=== PATIENT | male | born 1945 | race Caucasian/White ===

== ENCOUNTER 2017-02-27 15:56 | Emergency (ER) | payer OTHER, BC ==
[~2017-02-27] VITALS: Ht 177.8 cm; Wt 93.3 kg
[~2017-02-27 15:56] MED LIST: SODIUM CHLORIDE 0.9% 1000ML 1,000 ML IV SCH
[2017-02-27] MEDS ORDERED: SET 2260-0500 IV STA (16:04)
[2017-02-27] MEDS ORDERED: ALTEPLASE, RECOMBINANT INJ 8 MG in SYRINGE 0 ML IV STA (16:04)
[2017-02-27] MEDS ORDERED: ALTEPLASE, RECOMBINANT INJ 72 MG in EMPTY BAG 0 ML IV STA (16:04)
[2017-02-27 16:09] VITALS: TEMP 37; Ht 177.8 cm; Wt 93.3 kg
[2017-02-27 16:13] LABS: BASO % 0.1 %; BASO ABS # 0.01 K/uL (0-0.2); COMPLETE YES; EOS % 1.2 %; HEMATOCRIT 44.6 % (42-52); IG% 0.3 %; LYMPH ABS # 2.27 K/uL (1.2-3.4); MEAN CELL VOLUME 88.5 fL (80-100); MEAN CORPUSCULAR HEMOGLOBIN 31.3 pg (25-34); MEAN CORPUSCULAR HGB CONC 35.4 g/dl (32-36); MEAN PLATELET VOLUME 9.7 fL (7.4-10.4); NEUT % 63.4 %; PLATELET COUNT 218 K/uL (130-400); RED BLOOD COUNT 5.04 M/uL (4.7-6.1); WHITE BLOOD COUNT 9.46 K/uL (4.8-10.8)
[2017-02-27] MEDS ORDERED: LABETALOL HCL IV 5 MG/ML 20ML IV ONE (16:15)
--- NOTE | 2017-02-27 16:15 | DIAGNOSTIC IMAGING REPORT ---
CT OF THE HEAD WITHOUT CONTRAST CLINICAL HISTORY: Stroke. COMPARISON STUDY: No previous studies for comparison. CT DOSE: 749.40 mGy.cm TECHNIQUE: Helical axial images of the head were obtained without IV contrast. Automated exposure control was utilized for the study. A dose lowering technique was utilized adhering to the principles of ALARA. FINDINGS: No acute intracranial hemorrhage, midline shift or mass effect is present. Ventricular system is unremarkable for age. Basilar cisterns are patent. There are no extra-axial collections. There may be subtle increased attenuation of the sylvian branch of the right middle cerebral artery. 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 There is mild mucosal thickening of the sinuses. Mastoid air cells are clear. There are no significant calvarial abnormalities. IMPRESSION: 1. No acute intracranial hemorrhage or mass effect. 2. Equivocal findings for an acute right MCA distribution infarct. Discussed with Dr. Cummins at time of dictation. Electronically signed by: Sg Ruvalcaba M.D. 02/27/2017 4:14 PM Dictated Date/Time: 02/27/2017 4:04 PM
[2017-02-27 16:22] VITALS: O2SAT 97
[2017-02-27] MEDS ORDERED: TRAM-10 PO (16:24)
[2017-02-27] MEDS ORDERED: LISI-725 PO (16:24)
[2017-02-27] MEDS ORDERED: [UNRECOGNIZED DRUG - REMARK] PO (16:24)
[2017-02-27] MEDS ORDERED: METO25TA3 PO (16:24)
[2017-02-27 16:29] LABS: BLOOD UREA NITROGEN 27 mg/dl (7-18); CALCIUM 9.1 mg/dl (8.5-10.1); CARBON DIOXIDE 23 mmol/L (21-32); CHLORIDE 108 mmol/L (98-107); GLUCOSE 104 mg/dl (70-99); POTASSIUM 3.9 mmol/L (3.5-5.1); SODIUM 139 mmol/L (136-145)
[2017-02-27] MEDS ORDERED: NiCARDipine IV 25 MG in SODIUM CHLORIDE 0.9% 250ML 240 ML IV STA (16:29)
[2017-02-27] MEDS ORDERED: NiCARDipine IV 25 MG in SODIUM CHLORIDE 0.9% 250ML 240 ML IV PRN ×2 (16:30→16:45)
[2017-02-27 16:32] LABS: PARTIAL THROMBOPLASTIN RATIO 0.9; PROTHROMBIN TIME (PATIENT) 10.9 SECONDS (9.0-12.0)
[2017-02-27 16:34] LABS: CKMB/CK RATIO 1.8 (0-3.0)
[2017-02-27 18:02] VITALS: BP 163/87; PULSE 74; O2SAT 98
--- NOTE | 2017-02-27 19:01 | EMERGENCY ROOM VISIT NOTE ---
History Report prepared by Julian: Kassandra Patel Under the Supervision of: Dr. Bimal Cummins D.O. 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 The patient was at a store with his . They were walking around and then at about 3:20pm the patient developed some numbness in his left arm. He started to have left-sided weakness and was unable to speak to his . The ambulance was called and the patient was brought to the ED for further evaluation. He is still experiencing left-sided weakness. Pt denies headache, change in vision, fevers, chest pain, shortness of breath, nausea, vomiting, diarrhea, pain with urination, hematochezia, and melena. He denies any previous brain bleeds or brain surgeries. He has never had a stroke before. The patient recently stopped taking his aspirin and metoprolol and is trying other homeopathic remedies. Source of History: patient, EMS Onset: 3:20pm Position: other (global) Quality: other (stroke-like) Timing: constant Associated Symptoms: + weakness, + numbness, No fevers, No headache, No chest pain, No SOB, No nausea, No vomiting, No melena, No hematochezia, No urinary symptoms Review of Systems See HPI for pertinent positives & negatives. A total of 10 systems reviewed and were otherwise negative. Past Medical & Surgical Medical Problems: (1) History of stomach ulcers (2) Hx of venous thrombosis and embolism (3) Hypertension Family History No pertinent history stated. Social History Marital Status: Housing Status: lives with significant other Occupation Status: retired Current/Historical Medications Scheduled Lisinopril (Zestril), Unknown Dose PO DAILY Metoprolol Succinate (Toprol Xl), Unknown Dose PO DAILY [Natural "Thinner"], Unknown Dose PO DAILY Scheduled PRN Tramadol (Ultram), Unknown Dose PO Q8H PRN for Pain Allergies Coded Allergies: Benzodiazepines (Verified Allergy, Severe, "OPPOSITE EFFECTS", 02/27/17) Flurazepam (Verified Allergy, Severe, "OPPOSITE EFFECTS", 02/27/17) Warfarin (Verified Allergy, Severe, GI SYMPTOMS, 02/27/17) Codeine (Verified Allergy, Unknown, UNKNOWN, 02/27/17) Penicillins (Verified Allergy, Unknown, UNKNOWN, 02/27/17) Physical Exam Vital Signs Date Time Temp Pulse Resp B/P (MAP) Pulse Ox O2 Delivery O2 Flow Rate FiO2 02/27/17 18:02 74 18 163/87 98 Room Air 02/27/17 17:47 76 18 143/73 98 Room Air 02/27/17 17:32 71 18 149/82 98 Room Air 02/27/17 17:17 77 18 145/82 97 Room Air 02/27/17 17:02 75 20 163/87 98 Room Air 02/27/17 16:54 75 18 170/94 98 Room Air 02/27/17 16:29 65 18 195/107 Room Air 02/27/17 16:22 97 Room Air 02/27/17 16:09 72 02/27/17 16:09 37.0 74 20 213/85 98 Room Air 02/27/17 15:59 37.0 72 20 196/101 98 Room Air Physical Exam GENERAL: alert, lying on the CT scanner, disheveled appearing EYE EXAM: normal conjunctiva, PERRL and EOM's grossly intact OROPHARYNX: no exudate, no erythema, lips, buccal mucosa, and tongue normal and mucous membranes are moist NECK: supple, no nuchal rigidity, no adenopathy, non-tender LUNGS: Clear to auscultation. Normal chest wall mechanics HEART: no murmurs, S1 normal and S2 normal ABDOMEN: abdomen soft, non-tender, normo-active bowel sounds, no masses, no rebound or guarding. BACK: Back is symmetrical on inspection and there is no deformity, no midline tenderness, no CVA tenderness. SKIN: no rashes and no bruising UPPER EXTREMITIES: upper extremities are grossly normal. LOWER EXTREMITIES: No pitting edema. NEURO EXAM: Alert with slurred speech, tongue slightly deviated to the right, finger to nose intact. Gross sensation intact. Grasp and flexion/extension of the left upper extremity is weak. He is able to lift his left leg against gravity but unable to hold it up. Positive drift. Medical Decision & Procedures ER Provider Diagnostic Interpretation: Radiology results as stated below per my review and the radiologist's interpretation: CT OF THE HEAD WITHOUT CONTRAST CLINICAL HISTORY: Stroke. COMPARISON STUDY: No previous studies for comparison. CT DOSE: 749.40 mGy.cm TECHNIQUE: Helical axial images of the head were obtained without IV contrast. Automated exposure control was utilized for the study. A dose lowering technique was utilized adhering to the principles of ALARA. FINDINGS: No acute intracranial hemorrhage, midline shift or mass effect is present. Ventricular system is unremarkable for age. Basilar cisterns are patent. There are no extra-axial collections. There may be subtle increased attenuation of the sylvian branch of the right middle cerebral artery. 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 There is mild mucosal thickening of the sinuses. Mastoid air cells are clear. There are no significant calvarial abnormalities. IMPRESSION: 1. No acute intracranial hemorrhage or mass effect. 2. Equivocal findings for an acute right MCA distribution infarct. Discussed with Dr. Cummins at time of dictation. Electronically signed by: Sg Ruvalcaba M.D. 02/27/2017 4:14 PM Dictated Date/Time: 02/27/2017 4:04 PM Laboratory Results 02/27/17 15:54 Red Blood Count 5.04, Mean Corpuscular Volume 88.5, Mean Corpuscular Hemoglobin 31.3, Mean Corpuscular Hemoglobin Concent 35.4, Mean Platelet Volume 9.7, Neutrophils (%) (Auto) 63.4, Lymphocytes (%) (Auto) 24.0, Monocytes (%) (Auto) 11.0, Eosinophils (%) (Auto) 1.2, Basophils (%) (Auto) 0.1, Neutrophils # (Auto ) 6.00, Lymphocytes # (Auto) 2.27, Monocytes # (Auto) 1.04, Eosinophils # (Auto ) 0.11, Basophils # (Auto) 0.01 02/27/17 15:54 Test 02/27/17 15:54 02/27/17 16:11 White Blood Count 9.46 K/uL (4.8-10.8) Red Blood Count 5.04 M/uL (4.7-6.1) Hemoglobin 15.8 g/dL (14.0-18.0) Hematocrit 44.6 % (42-52) Mean Corpuscular Volume 88.5 fL (80-100) Mean Corpuscular Hemoglobin 31.3 pg (25-34) Mean Corpuscular Hemoglobin Concent 35.4 g/dl (32-36) Platelet Count 218 K/uL (130-400) Mean Platelet Volume 9.7 fL (7.4-10.4) Neutrophils (%) (Auto) 63.4 % Lymphocytes (%) (Auto) 24.0 % Monocytes (%) (Auto) 11.0 % Eosinophils (%) (Auto) 1.2 % Basophils (%) (Auto) 0.1 % Neutrophils # (Auto) 6.00 K/uL (1.4-6.5) Lymphocytes # (Auto) 2.27 K/uL (1.2-3.4) Monocytes # (Auto) 1.04 K/uL (0.11-0.59) Eosinophils # (Auto) 0.11 K/uL (0-0.5) Basophils # (Auto) 0.01 K/uL (0-0.2) RDW Standard Deviation 40.1 fL (36.4-46.3) RDW Coefficient of Variation 12.5 % (11.5-14.5) Immature Granulocyte % (Auto) 0.3 % Immature Granulocyte # (Auto) 0.03 K/uL (0.00-0.02) Prothrombin Time 10.9 SECONDS (9.0-12.0) Prothromb Time International Ratio 1.0 (0.9-1.1) Activated Partial Thromboplast Time 24.3 SECONDS (21.0-31.0) Partial Thromboplastin Ratio 0.9 Anion Gap 8.0 mmol/L (3-11) Est Creatinine Clear Calc Drug Dose 54.7 ml/min Estimated GFR () 57.8 Estimated GFR (Non- 49.8 BUN/Creatinine Ratio 19.0 (10-20) Calcium Level 9.1 mg/dl (8.5-10.1) Total Creatine Kinase 122 U/L (39-308) Creatine Kinase MB 2.2 ng/ml (0.5-3.6) Creatine Kinase MB Ratio 1.8 (0-3.0) Troponin I < 0.015 ng/ml (0-0.045) Bedside Glucose 96 mg/dl (70-99) Laboratory results per my review. Medications Administered Medications (Trade) Dose Ordered Sig/Delmi Route Start Time Stop Time Status Last Admin Dose Admin Alteplase, Recombinant 72 mg/ Empty Bag 72 ml @ 72 mls/hr NOW STAT IV 02/27/17 16:04 02/27/17 17:03 DC 02/27/17 16:52 72 MLS/HR Alteplase, Recombinant 8 mg/ Syringe 8 ml @ 8 mls/min NOW STAT IV 02/27/17 16:04 02/27/17 16:07 DC 02/27/17 16:46 8 MLS/MIN Labetalol HCl (Normodyne IV) 10 mg NOW ONCE IV 02/27/17 16:15 02/27/17 16:16 DC 02/27/17 16:26 10 MG Nicardipine HCl 25 mg/Sodium Chloride 250 ml @ 0 mls/hr Q0M PRN IV 02/27/17 16:30 02/27/17 16:38 DC 02/27/17 16:27 5 MLS/HR ECG Indication: weakness Rate (beats per minute): 77 Rhythm: normal sinus Findings: left axis deviation, other (intraventricular conduction delay) ED Course ED COURSE: Vital signs were reviewed and showed hypertension. The patients medical record was reviewed The above diagnostic studies were performed and reviewed. ED treatments and interventions as stated above. 1551: Upon the patient's arrival in the ED, he was taken directly to CT scan. I accompanied him and performed my initial physical examination there. 1553: NSS 1000 ml @ 50 mls/hr IV 1603: The patient was taken to room B1. Further history was obtained and a further physical examination was performed. 1604: Alteplase Recombinant 8 mg/IV, Alteplase Recombinant 72 mg IV 1608: At this time I discussed the patient's case with Dr. Triplett of neurology at [facility]. 1613: Dr. Triplett is evaluating the patient via Tele-stroke. 1614: The patient's repeat blood pressure is 203. 1615: Labetalol HCl 10 mg IV 1619: The patient's blood pressure is still high. He is getting Labetalol now. 1629: Nicardipine HCl 250 ml @ 5 mls/hr IV 1639: I updated the patient and his on his results and treatment plan. I talked to them about the risks and benefits associated with TPA. They are discussing their options now. 1644: The patient and his deny any recent trauma, brain bleeds, blood in stool. Both him and his accepted the risk of intracranial bleed at a rate of about 6%. The patient is getting TPA. 1645: Nicardipine HCl 250 ml IV 1646:The patient received TPA and his blood pressure is 170. 1648: I discussed the patient's case with Dr. Triplett again at this time. He accepted the patient for transfer to the ED at [facility]. 1652: I reassessed the patient at this time. I discussed the results and treatment plan with the patient and his . I answered all pertaining questions that they had. They expressed understanding and verbalized agreement. 1715: [facility] is unable to fly the patient due to inclement weather. They are going to transfer the patient by ground. I updated the patient and his family. His symptoms have improved and he can lift his left leg and keep it elevated. 1739: The patient's speech is cleared up. 1749: Upon reevaluation, the patient is much improved. The TPA has finished and EMS has arrived to transfer the patient to [facility]. The patient remained stable while under my care. Medical Decision Differential Diagnosis includes but is not limited to ischemic Stroke, hemorrhagic stroke, bells palsy, mass, neoplasm, migraine headache, seizure, subarachnoid hemorrhage, TIA, and transient global amnesia. I received medical command on this patient. Stroke alert was called has had active left-sided weakness associated with slurred speech. Upon arrival he was taken directly to CAT scan. CT showed a questionable right MCA sign. Discussed case with [facility]. Patient was evaluated by them independently. I gave 1 dose of labetalol as systolic blood pressures were in the 200s. Following this he was placed on a Cardene drip so TPA could be administered. This was titrated up to a systolic blood pressure less than 180. Risk and benefits were explained at length in regards to TPA. I discussed with the pharmacist initially upon arrival in the TPA was mixed. Bolus and drip was given in the ER following full eval by [facility] and myself. Both Pt and agreed to the risks. Patient's symptoms improved significant. He was monitored closely. Multiple discussions with [facility]. Eventually contacted [facility] as [facility] was not flying. Patient will be transferred by ground. TPA finish prior to transport. Cardene drip will continue. Patient's speech cleared up significantly and left lower extremity weakness almost nearly resolved. Patient was transferred via [facility] to [facility] for further evaluation via air as the weather clear. As stated in the course patient had no bleeding risk factors with the exception of injection done 3 weeks ago into the back of the neck. Medication Reconcilliation Current Medication List: was personally reviewed by me Blood Pressure Screening Patient's blood pressure: Elevated blood pressure Blood pressure disposition: Referred to PCP Consults Time Called: 1606 Consulting Physician: Dr. Triplett Returned Call: 1608 At this time I discussed the patient's case with Dr. Triplett of neurology at [facility]. Additional Consults: Time Called: 1646 Consulted Physician: Dr. Triplett Returned Call: 1648 Additional Comments: I discussed the patient's case with Dr. Triplett again at this time. He accepted the patient for transfer to the ED at [facility]. Impression Primary Impression: Stroke Additional Impression: Hypertension Critical Care I have personally spent 125 minutes of critical care time in the direct management of this patient. This includes bedside care, interpretation of diagnostic studies, and testing, discussion with consultants, patient, and family members, and other required patient management activities. This 125 minutes is in excess of all separately billable procedures. Scribe Attestation The scribe's documentation has been prepared under my direction and personally reviewed by me in its entirety. I confirm that the note above accurately reflects all work, treatment, procedures, and medical decision making performed by me. Departure Information Dispostion Transfer Acute Care Facility Referrals No Doctor, Assigned (PCP) Patient Instructions My [facility] Stroke History Time Last Known Well 1520 Stroke t-PA Criteria Reviewed Meets criteria for t-PA Reason t-PA Not Given Treatment provided - N/A Problem Qualifiers Primary Impression: Stroke CVA mechanism: occlusion Precerebral and cerebral artery: middle cerebral artery Laterality of affected vessel: right Qualified Codes: I63.511 - Cerebral infarction due to unspecified occlusion or stenosis of right middle cerebral artery Additional Impression: Hypertension Hypertension type: unspecified Qualified Codes: I10 - Essential (primary) hypertension
== END 2017-02-27 18:08 | disposition short-term general hospital (02) ==
LOC: C.EDB 15:56
DX: I63.511 Cerebral infarction due to unspecified occlusion or stenosis of right middle cerebral artery (principal); I10 Essential (primary) hypertension; Z86.718 Personal history of other venous thrombosis and embolism; Z87.19 Personal history of other diseases of the digestive system

== ENCOUNTER 2017-03-05 17:47 | Emergency (ER) | payer OTHER, BC ==
[~2017-03-05] VITALS: Ht 177.8 cm; Wt 93.4 kg
[~2017-03-05 17:47] MED LIST changes: +LISI-725 PO; +METO25TA3 PO; -SODIUM CHLORIDE 0.9% 1000ML 1,000 ML IV SCH; +TRAM-10 PO; +[UNRECOGNIZED DRUG - REMARK] PO
[2017-03-05 17:55] VITALS: Ht 177.8 cm; Wt 93.4 kg
[2017-03-05] MEDS ORDERED: ONDANSETRON INJ 2 MG/ML 2 ML VIAL IV STA (17:57)
[2017-03-05] MEDS ORDERED: TAMS0.4C38 PO (18:05)
[2017-03-05] MEDS ORDERED: ASPI81CH2 PO (18:05)
[2017-03-05] MEDS ORDERED: ENOX40IN SQ (18:05)
[2017-03-05] MEDS ORDERED: CLOP1TAB15 PO (18:05)
[2017-03-05] MEDS: FENTANYL CITRATE INJ 50 MCG/1 ML 2 ML VIAL IV PRN ×3 (18:09→20:00)
[2017-03-05] MEDS ORDERED: METO25TA56 PO (18:11)
[2017-03-05] MEDS ORDERED: FAMO10TA10 PO (18:11)
[2017-03-05 18:12] LABS: BASO % 0.1 %; BASO ABS # 0.01 K/uL (0-0.2); COMPLETE YES; EOS % 0.4 %; IG% 0.3 %; LYMPH % 12.6 %; LYMPH ABS # 1.41 K/uL (1.2-3.4); MEAN CELL VOLUME 91.7 fL (80-100); MEAN CORPUSCULAR HEMOGLOBIN 31.8 pg (25-34); MEAN CORPUSCULAR HGB CONC 34.7 g/dl (32-36); MEAN PLATELET VOLUME 9.6 fL (7.4-10.4); NEUT % 77.6 %; PLATELET COUNT 229 K/uL (130-400); RED BLOOD COUNT 4.69 M/uL (4.7-6.1); WHITE BLOOD COUNT 11.16 K/uL (4.8-10.8)
--- NOTE | 2017-03-05 18:13 | DIAGNOSTIC IMAGING REPORT ---
CHEST ONE VIEW PORTABLE CLINICAL HISTORY: CHEST PAIN dyspnea COMPARISON STUDY: No previous studies for comparison. FINDINGS: Prior median sternotomy. Diaphragms smooth. Lungs are considered clear. IMPRESSION: Negative chest. The above report was generated using voice recognition software. It may contain grammatical, syntax or spelling errors. Electronically signed by: Alexys Carreno M.D. 03/05/2017 6:12 PM Dictated Date/Time: 03/05/2017 6:12 PM
[2017-03-05 18:24] LABS: PARTIAL THROMBOPLASTIN RATIO 1.1; PROTHROMBIN TIME (PATIENT) 11.1 SECONDS (9.0-12.0)
[2017-03-05 18:33] LABS: ALT/SGPT 30 U/L (12-78); BLOOD UREA NITROGEN 16 mg/dl (7-18); BUN/CREATININE RATIO 12.9 (10-20); CALCIUM 9.5 mg/dl (8.5-10.1); CARBON DIOXIDE 25 mmol/L (21-32); CHLORIDE 107 mmol/L (98-107); GLUCOSE 136 mg/dl (70-99); POTASSIUM 4.2 mmol/L (3.5-5.1); SODIUM 140 mmol/L (136-145)
[2017-03-05 18:38] LABS: ALKALINE PHOSPHATASE 57 U/L (45-117); AST/SGOT 12 U/L (15-37)
--- NOTE | 2017-03-05 18:48 | EMERGENCY ROOM VISIT NOTE ---
History Report prepared by Julian: Rosa Ralph Under the Supervision of: Dr. Grey Medrano D.O. First contact with patient: 17:52 Chief Complaint: BLEEDING Stated Complaint: BLEEDING History of Present Illness The patient is a 71 year old male who presents to the Emergency Room with complaints of persistent bleeding from neck starting 10-20 minutes ago. The patient had a stroke recently and was given TPA here and sent to [place]. He had a carotid endarterectomy there yesterday. He was discharged today. He did have some oozing today when he was discharged, but was told that it was not concerning. He started to have increased bleeding prompting him to present to the ED. He does not think the swelling in his neck has worsened. He was given Lovenox last night and Plavix today. He is having increased pain with swallowing. He denies any trouble breathing, weakness in the arms or legs, or any other stroke symptoms. Source of History: patient, family Onset: 10-20 minutes ago Position: neck Quality: other (bleeding) Timing: other (persistent) Associated Symptoms: No SOB, No weakness Note: Pt reports increased pain with swallowing. Pt denies worsening of swelling, stroke symptoms. Review of Systems See HPI for pertinent positives & negatives. A total of 10 systems reviewed and were otherwise negative. Past Medical & Surgical Medical Problems: (1) History of stomach ulcers (2) Hx of venous thrombosis and embolism (3) Hypertension (4) Stroke Family History No pertinent family history stated. Social History Smoking Status: Never Smoker Marital Status: Housing Status: lives with significant other Occupation Status: retired Current/Historical Medications Scheduled Aspirin (Aspirin), 81 MG PO QAM Clopidogrel (Plavix), 75 MG PO QAM Enoxaparin (Lovenox), 40 MG SQ Q12H Famotidine (Pepcid Ac), 15 MG PO QAM Metoprolol Tartrate (Lopressor) (Lopressor), 12.5 MG PO BID Tamsulosin Hcl (Flomax), 0.8 MG PO QAM Allergies Coded Allergies: Benzodiazepines (Verified Allergy, Severe, "OPPOSITE EFFECTS", 03/05/17) Flurazepam (Verified Allergy, Severe, "OPPOSITE EFFECTS", 03/05/17) Warfarin (Verified Allergy, Severe, GI SYMPTOMS, 03/05/17) Codeine (Verified Allergy, Unknown, UNKNOWN, 03/05/17) Penicillins (Verified Allergy, Unknown, UNKNOWN, 03/05/17) Statins (Unverified Allergy, Unknown, MUSCLE PAIN, 03/05/17) Physical Exam Vital Signs Date Time Temp Pulse Resp B/P (MAP) Pulse Ox O2 Delivery O2 Flow Rate FiO2 03/05/17 20:37 114 15 95 Nasal Cannula 2.0 03/05/17 20:31 149/95 03/05/17 20:22 115 20 95 Nasal Cannula 2.0 03/05/17 20:17 119 23 95 03/05/17 20:16 37.0 118 17 125/95 96 Nasal Cannula 2.0 03/05/17 20:12 170/96 03/05/17 20:10 37.0 118 19 170/96 96 2.0 03/05/17 20:06 114 16 96 Nasal Cannula 2.0 03/05/17 20:01 153/93 03/05/17 20:00 37.1 108 21 153/93 95 2.0 03/05/17 19:51 106 18 96 Nasal Cannula 2.0 03/05/17 19:46 155/90 03/05/17 19:43 163/92 03/05/17 19:43 37.1 108 20 163/92 95 03/05/17 19:36 105 21 95 Nasal Cannula 2.0 03/05/17 19:31 146/91 03/05/17 19:22 104 22 96 Nasal Cannula 2.0 03/05/17 19:17 104 95 Nasal Cannula 2.0 03/05/17 19:16 125/110 03/05/17 19:02 106 18 95 Nasal Cannula 2.0 03/05/17 18:57 111 18 95 Nasal Cannula 2.0 03/05/17 18:49 90 Room Air 03/05/17 18:49 95 Nasal Cannula 2.0 03/05/17 18:46 154/94 03/05/17 18:42 104 21 94 03/05/17 18:37 105 21 92 03/05/17 18:31 168/88 03/05/17 18:22 114 20 93 03/05/17 18:16 108 19 170/92 94 Room Air 03/05/17 18:16 170/92 03/05/17 18:09 96 Room Air 03/05/17 18:07 108 19 96 7/28/17 18:02 100 22 96 03/05/17 18:01 193/98 03/05/17 18:00 105 03/05/17 17:59 201/107 03/05/17 17:58 203/107 03/05/17 17:58 96 Room Air 03/05/17 17:55 37.1 108 22 203/107 96 Room Air Physical Exam GENERAL: Patient is awake, alert, and very anxious appearing. EYES: The conjunctivae are clear. The pupils are round and reactive. EARS, NOSE, MOUTH AND THROAT: The nose is without any evidence of any deformity. Mucous membranes are moist tongue is midline NECK: Post operative site noted in the right side of the neck, skin sarkis were in place, mild oozing of blood noted over the surgical site, large post operative hematoma noted, no bruit was appreciated, palpated tenderness noted. RESPIRATORY: Normal respiratory effort is noted there is no evidence of wheezing rhonchi or rales CARDIOVASCULAR: Regular rate and rhythm noted there no murmurs rubs or gallops normal S1 normal S2 GASTROINTESTINAL: The abdomen is soft. Bowel sounds are present in all quadrants. Abdomen is nontender MUSCULOSKELETAL/EXTREMITIES: There is no evidence of gross deformity full range of motion is noted in the hips and shoulders SKIN: There is no obvious evidence of any rash. There are no petechiae, pallor or cyanosis noted. NEUROLOGIC: Patient is awake alert and oriented x3 Medical Decision & Procedures ER Provider Diagnostic Interpretation: X-ray results as stated below per interpretation by me and the radiologist. CHEST ONE VIEW PORTABLE CLINICAL HISTORY: CHEST PAIN dyspnea COMPARISON STUDY: No previous studies for comparison. FINDINGS: Prior median sternotomy. Diaphragms smooth. Lungs are considered clear. IMPRESSION: Negative chest. The above report was generated using voice recognition software. It may contain grammatical, syntax or spelling errors. Electronically signed by: Alexys Carreno M.D. 03/05/2017 6:12 PM Dictated Date/Time: 03/05/2017 6:12 PM Laboratory Results 03/05/17 18:00 Red Blood Count 4.69, Mean Corpuscular Volume 91.7, Mean Corpuscular Hemoglobin 31.8, Mean Corpuscular Hemoglobin Concent 34.7, Mean Platelet Volume 9.6, Neutrophils (%) (Auto) 77.6, Lymphocytes (%) (Auto) 12.6, Monocytes (%) (Auto) 9.0, Eosinophils (%) (Auto) 0.4, Basophils (%) (Auto) 0.1, Neutrophils # (Auto) 8.66, Lymphocytes # (Auto) 1.41, Monocytes # (Auto) 1.00, Eosinophils # (Auto) 0.05, Basophils # (Auto) 0.01 03/05/17 18:00 Test 03/05/17 18:00 White Blood Count 11.16 K/uL (4.8-10.8) Red Blood Count 4.69 M/uL (4.7-6.1) Hemoglobin 14.9 g/dL (14.0-18.0) Hematocrit 43.0 % (42-52) Mean Corpuscular Volume 91.7 fL (80-100) Mean Corpuscular Hemoglobin 31.8 pg (25-34) Mean Corpuscular Hemoglobin Concent 34.7 g/dl (32-36) Platelet Count 229 K/uL (130-400) Mean Platelet Volume 9.6 fL (7.4-10.4) Neutrophils (%) (Auto) 77.6 % Lymphocytes (%) (Auto) 12.6 % Monocytes (%) (Auto) 9.0 % Eosinophils (%) (Auto) 0.4 % Basophils (%) (Auto) 0.1 % Neutrophils # (Auto) 8.66 K/uL (1.4-6.5) Lymphocytes # (Auto) 1.41 K/uL (1.2-3.4) Monocytes # (Auto) 1.00 K/uL (0.11-0.59) Eosinophils # (Auto) 0.05 K/uL (0-0.5) Basophils # (Auto) 0.01 K/uL (0-0.2) RDW Standard Deviation 42.5 fL (36.4-46.3) RDW Coefficient of Variation 12.8 % (11.5-14.5) Immature Granulocyte % (Auto) 0.3 % Immature Granulocyte # (Auto) 0.03 K/uL (0.00-0.02) Prothrombin Time 11.1 SECONDS (9.0-12.0) Prothromb Time International Ratio 1.0 (0.9-1.1) Activated Partial Thromboplast Time 27.5 SECONDS (21.0-31.0) Partial Thromboplastin Ratio 1.1 Anion Gap 8.0 mmol/L (3-11) Est Creatinine Clear Calc Drug Dose 63.9 ml/min Estimated GFR () 69.6 Estimated GFR (Non- 60.1 BUN/Creatinine Ratio 12.9 (10-20) Calcium Level 9.5 mg/dl (8.5-10.1) Total Bilirubin 0.7 mg/dl (0.2-1) Direct Bilirubin 0.1 mg/dl (0-0.2) Aspartate Amino Transf (AST/SGOT) 12 U/L (15-37) Alanine Aminotransferase (ALT/SGPT) 30 U/L (12-78) Alkaline Phosphatase 57 U/L (45-117) Troponin I < 0.015 ng/ml (0-0.045) Total Protein 7.2 gm/dl (6.4-8.2) Albumin 3.5 gm/dl (3.4-5.0) Lipase 328 U/L (73-393) Laboratory results per my review. Medications Administered Medications (Trade) Dose Ordered Sig/Delmi Route Start Time Stop Time Status Last Admin Dose Admin Ondansetron HCl (Zofran Inj) 4 mg NOW STAT IV 03/05/17 17:57 03/05/17 17:59 DC 03/05/17 18:09 4 MG Fentanyl Citrate (Fentanyl Inj) 50 mcg Q15M PRN IV 03/05/17 18:00 03/05/17 22:20 DC 03/05/17 20:00 50 MCG Nicardipine HCl 25 mg/Sodium Chloride 250 ml @ 0 mls/hr Q0M STAT IV 03/05/17 19:00 03/05/17 19:03 DC 03/05/17 19:11 25 MLS/HR ECG Indication: tachycardia Rate (beats per minute): 106 Rhythm: sinus tachycardia Findings: no ectopy, other (LVH by voltage criteria) Comparison ECG Date: 27-Feb-2017 Change: no significant change ED Course 175: The patient was evaluated in room B1. A complete history and physical examination were performed. 1757: Zofran Inj 4 mg IV. 1800: Fentanyl Citrate 50 mcg IV. 1900: Nicardipine HCl 25 mg/Sodium Chloride 250 ml @ 0 mls/hr IV. 1837: I discussed the patient's case with Dr. Sandhu, a resident on the surgical team at [facility]. 1854: I discussed the patient's case with Dr. Choudhary, [facility]. They recommend lowering his blood pressure, applying dressing, and giving platelets. 1904: I reevaluated the patient. I updated him and his family. 1933: I discussed the patient's case with Dr. Root, [facility]. The patient has been accepted for transfer to [facility]. 1942: Upon reevaluation, the patient is stable. I discussed results and treatment plan with him and his family. They verbalize agreement and understanding. The patient will be transferred to [facility] for further management and care. Medical Decision Nursing notes reviewed. Additional history is obtained from the patient's family members. The patient's previous electronic medical records reviewed. Differential diagnosis this patient could include trauma cytopenia anticoagulation postoperative bleeding postoperative infection and other differential diagnoses were considered. The patient is a 71-year-old male who presented to the emergency department for an evaluation of bleeding. The patient was seen in our facility recently for stroke. At that time he was treated with intravenous TPA. He was sent to 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 He had carotid endarterectomy. In the postoperative unit he had some bleeding after this procedure. This was treated with open evaluation and a bleeding vessel was ligated. The patient started to have bleeding prior to arrival. The patient had a wound dressing replaced. I discussed his case with his surgical team at [facility]. They wanted us to transfer the patient directly to them for further management and requested that I treat the patient's blood pressure as well as a platelet transfusion because he is taking Plavix. We were unable to transfer the patient because of weather. I was concerned by putting the patient in an ambulance and transferring him by ground because of the nature of this process. The patient's swelling appears to have been present when he left [facility] but his family members are concerned that this is worsened and the bleeding is certainly worsened as well. The patient also has pain with swallowing and I'm concerned this could be an ongoing process although he does not have a definite expanding hematoma at this time. For this reason I discussed his case with [facility] and we were able to have him accepted by the vascular surgeon there. He was to go directly to the emergency department. He was sent by ground transfer. The patient's condition did not deteriorate prior to transfer. I discussed the patient's laboratory radiographic studies with him. Medication Reconcilliation Current Medication List: was personally reviewed by me Blood Pressure Screening Patient's blood pressure: Elevated blood pressure Elevated blood pressure is being treated. Consults Time Called: 1800 Consulting Physician: Dr. Sandhu, a resident on the surgical team at [facility] Returned Call: [phone] I discussed the patient's case with them. They shared their recommendations with me. Additional Consults: Time Called: 1840 Consulted Physician: Dr. Choudhary, [facility] Returned Call: [phone] Additional Comments: I discussed the patient's case with them. They recommend lowering his blood pressure, applying dressing, and giving platelets. Time Called: 190 Consulted Physician: Dr. Root, [facility] Returned Call: [phone] Additional Comments: I discussed the patient's case with them. The patient has been accepted for transfer to [facility]. Impression Primary Impression: Encounter for postoperative carotid endarterectomy surveillance Additional Impression: Post-op bleeding Critical Care I have personally spent greater than 50 minutes of critical care time in the direct management of this patient. This includes bedside care, interpretation of diagnostic studies, and testing, discussion with consultants, patient, and family members, and other required patient management activities. This 50 minutes is in excess of all separately billable procedures. Scribe Attestation The scribe's documentation has been prepared under my direction and personally reviewed by me in its entirety. I confirm that the note above accurately reflects all work, treatment, procedures, and medical decision making performed by me. Departure Information Dispostion Transfer Acute Care Facility Referrals No Doctor, Assigned (PCP) Patient Instructions My [facility] Problem Qualifiers Additional Impression: Post-op bleeding Surgical complication system/body Area: circulatory system Procedure type: other circulatory Qualified Codes: I97.618 - Postprocedural hemorrhage of a circulatory system organ or structure following other circulatory system procedure
[2017-03-05] MEDS ORDERED: NiCARDipine IV 25 MG in SODIUM CHLORIDE 0.9% 250ML 240 ML IV STA (19:00)
[2017-03-05 19:43] VITALS: BP 163/92; PULSE 108; TEMP 37.1; O2SAT 95
[2017-03-05] MEDS ORDERED: NiCARDipine IV 25 MG in SODIUM CHLORIDE 0.9% 250ML 240 ML IV PRN (19:45)
[2017-03-05 20:00] VITALS: BP 153/93; PULSE 108; TEMP 37.1; O2SAT 95
[2017-03-05 20:10] VITALS: BP 170/96; PULSE 118; TEMP 37; O2SAT 96
[2017-03-05 20:16] VITALS: TEMP 37
[2017-03-05 20:31] VITALS: BP 149/95
[2017-03-05 20:37] VITALS: PULSE 114; O2SAT 95
== END 2017-03-05 20:40 | disposition short-term general hospital (02) ==
LOC: C.EDB 17:49
DX: I97.618 Postprocedural hemorrhage of a circulatory system organ or structure following other circulatory system procedure (principal); R00.0 Tachycardia, unspecified; I10 Essential (primary) hypertension; Z79.01 Long term (current) use of anticoagulants; Z79.02 Long term (current) use of antithrombotics/antiplatelets; Z79.82 Long term (current) use of aspirin; Z86.718 Personal history of other venous thrombosis and embolism; Z87.19 Personal history of other diseases of the digestive system